=== PATIENT | female | born 2000 | race Caucasian/White ===

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

== ENCOUNTER 2021-01-13 21:41 | Emergency (ER) | payer SELFPAY ==
[2021-01-13 21:48] VITALS: BP 115/76; PULSE 96; RESP 18; O2SAT 99; BMI 24.4
--- NOTE | 2021-01-13 21:56 | ED_ITS ---
HPI - Abdominal Pain General: Chief Complaint: Abdominal Pain Stated Complaint: ab pain Time Seen by Provider: 01/13/21 21:44 Source: patient Mode of arrival: ambulatory Limitations: no limitations History of Present Illness: HPI narrative: Patient is a 20-year-old female who presents to ED today with a complaint of epigastric pain that began yesterday. Patient was initially seen at urgent care earlier today and told to begin taking OTC omeprazole. Patient tells me she took 1 tablet of this but this is not helping her symptoms. She is complaining of nausea without vomiting. Last bowel movement was yesterday and described as normal. She has not been running fevers. She does not complain of urinary symptoms. She is status post cholecystectomy. She states her pain is worse with eating. MD elicited complaint: abdominal pain Onset (ago): day(s) (yesterday) Pain Consistency: constant Location: Epigastric Severity: moderate Quality: sharp Radiation: none Migration to: no migration Exacerbating factors: eating Relieving factors: nothing Associated Symptoms: Reports no associated symptoms and nausea; Denies change in stool character, dysuria, fever(s), hematemesis and vomiting Related Data: Date of Last Menstrual Period: 10/18/20 Patient : No Review of Systems Const: Denies: fever(s) ENMT: Denies: throat pain or odynophagia Card: Denies: chest pain Resp: Denies: dyspnea GI: Reports: abdominal pain and nausea; Denies: vomiting, hematemesis, pain on defecation or change in stool character : Denies: flank pain or dysuria Musc: Denies: back pain Skin/Breast: Denies: rash Neuro: Denies: headache(s) PFSH ED PFSH: Social History Smoking and tobacco status: never smoked Alcohol intake: never Female Reproductive History: Date of last menstrual period: 10/18/20 Physical Exam Const: COMMON NORMALS: no acute distress, average body habitus, patient oriented x3, no limitations, healthy appearing, alert and well nourished GENERAL APPEARANCE: cooperative ORIENTATION/CONSCIOUSNESS: Yes awake, Yes oriented to person, Yes oriented to place and Yes oriented to time Chest: COMMONS NORMALS: normal inspection of the chest and normal palpation of entire chest wall Resp: COMMON NORMALS: normal respiratory effort and clear to auscultation bilaterally AUSCULTATION: clear to auscultation bilaterally Cardio: COMMON NORMALS: regular rate and regular rhythm RATE: regular rate RHYTHM: regular rhythm GI: COMMON NORMALS: Normal to inspection, nondistended, normoactive bowel sounds present, Soft to palpation, No hepatosplenomegaly present and no masses PALPATION: Yes Soft to palpation, Yes Tenderness to palpation present (GI) (epigastric) and Yes No hepatosplenomegaly present : COMMON NORMALS: Yes no CVA tenderness BLADDER/KIDNEY EXAM: Yes no CVA tenderness Back/Pelvis: COMMON NORMALS: no CVA tenderness Extremity: COMMON NORMALS: normal to inspection Neuro: COMMON NORMALS: patient oriented x3 SENSORIUM/ORIENTATION: Yes alert, Yes oriented to person, Yes oriented to place and Yes oriented to time Skin: COMMON NORMALS: no rashes or lesions noted GENERAL SKIN EXAM: no rashes or lesions noted Course Vital Signs: Vital signs: Vital Signs Pulse Rate 96 01/13/21 21:48 Respiratory Rate 18 01/13/21 21:48 Blood Pressure 115/76 01/13/21 21:48 Pulse Oximetry 99 01/13/21 21:48 MDM - Abdominal Pain MDM Narrative: Medical decision making narrative: Patient states her pain is much improved after GI cocktail. Recommend she start taking an H2 carlos in addition the omeprazole. Will give her some vicious lidocaine she can take as well if needed. [place] diet discussed and advance as tolerated. Lab Data: Labs: Lab Results 01/13/21 01/13/21 01/13/21 Range/Units 22:06 22:06 22:06 WBC 6.4 (4.5-13.0) 10^3/ uL RBC 4.26 (4.1-5.3) 10^6/u L Hgb 12.9 (11.5-15.3) g/dL Hct 39.2 (37.0-47.0) % MCV 92.0 (81-99) fL MCH 30.3 (28.0-34.0) pg MCHC 32.9 (30.0-36.0) g/dL RDW 12.0 L (12.1-15.1) % Plt Count 246 (130-400) 10^3/c mm MPV 9.3 (7.4-10.4) fL Neut % (Auto) 47.3 % Lymph % (Auto) 40.7 % Roberts % (Auto) 7.9 % Eos % (Auto) 3.3 % Baso % (Auto) 0.6 % Neut # (Auto) 3.04 (1.8-8.0) 10^3/u L Lymph # (Auto) 2.6 (1.5-6.5) 10^3/u L Roberts # (Auto) 0.5 (0.2-0.9) 10^3/u L Eos # (Auto) 0.2 (0.0-0.8) 10^3/u L Baso # (Auto) 0.0 (0.0-0.1) 10^3/u L Nucleated RBC % (a uto) 0 % Nucleated RBCs # 0.0 /100WBC Sodium 137 (136-145) mmol/L Potassium 3.7 (3.5-5.1) mmol/L Chloride 103 (98-107) mmol/L Carbon Dioxide 24 (22-29) mmol/L Anion Gap 13.7 (5-19) BUN 6 (6-20) mg/dL Creatinine 0.7 (0.5-0.9) mg/dL GFR Calculation 107.8 (90-130) mL/min Glucose 100 (65-115) mg/dL Calculated Osmolal ity 282 L (285-295) mOsm/k g Calcium 8.2 L (8.5-10.5) mg/dL Total Bilirubin 0.4 (0.15-1.2) mg/dL AST 19 (0-32) U/L ALT 20 (0-33) U/L Alkaline Phosphata se 68 (35-105) IU/L Total Protein 6.7 (6.6-8.7) g/dL Albumin 4.2 (3.5-5.2) g/dL Globulin 2.5 (1.3-4.6) g/dL Lipase 21 (13-60) U/L HCG, Qual Negative (Negative) Discharge Plan Discharge Patient Disposition: Home Clinical Impression: Gastritis Qualifiers: Gastritis type: unspecified gastritis Chronicity: acute Gastritis bleeding: without bleeding Qualified Code(s): K29.00 - Acute gastritis without bleeding Condition: Stable Prescriptions: New Lidocaine Viscous 2 % solution 15 ml PO QID PRN (Reason: pain) Qty: 100 RF: 0 No Action citalopram 20 mg tablet 20 mg PO ONCE RF: 0 cyproheptadine 4 mg tablet 4 mg PO ONCE RF: 0 trazodone 100 mg tablet 100 mg PO DAILY RF: 0 Discharge Orders: Discharge ED (Routine); Ordered 01/13/21 Ordered By: Payal Alfaro Referrals: Renan Bridges MD [Primary Care Provider] - Activity Restrictions/Additional Instructions: Start your Omeprazole as instructed. Begin taking a medication such as Pepcid/Zantac according to label instructions. You may use the prescription viscous lidocaine as directed-may mix this with Pepto or Maalax. Return to the ED for worsening pain, vomiting blood, or any other concerns you may have. Coding Level of Care Code ED Rag Sorter for Guilherme Paniagua
[2021-01-13] MEDS: lidocaine 2% viscous 15 ML, aluminum-mag hydrox-simethicon 30 ML, sucralfate oral liq 1 GM PO (21:59)
[2021-01-13 22:11] LABS: Basophils % 0.6 %; Eosinophils # 0.2 10^3/uL (0.0-0.8); Eosinophils % 3.3 %; Hematocrit 39.2 % (37.0-47.0); Hemoglobin 12.9 g/dL (11.5-15.3); Lymphocytes # 2.6 10^3/uL (1.5-6.5); Lymphocytes % 40.7 %; Mean Corpuscular HGB Conc 32.9 g/dL (30.0-36.0); Mean Corpuscular Hemoglobin 30.3 pg (28.0-34.0); Mean Platelet Volume 9.3 fL (7.4-10.4); Monocytes # 0.5 10^3/uL (0.2-0.9); Monocytes % 7.9 %; Neutrophils # 3.04 10^3/uL (1.8-8.0); Neutrophils % 47.3 %; Nucleated Red Blood Cells % 0 %; Platelet Count 246 10^3/cmm (130-400); Red Blood Count 4.26 10^6/uL (4.1-5.3); White Blood Count 6.4 10^3/uL (4.5-13.0)
[2021-01-13 22:27] LABS: HCG, Serum Qual Negative (Negative)
[2021-01-13 22:29] LABS: Alanine Aminotransferase 20 U/L (0-33); Albumin Level 4.2 g/dL (3.5-5.2); Alkaline Phosphatase 68 IU/L (35-105); Anion Gap 13.7 (5-19); Aspartate Amino Transferase 19 U/L (0-32); Blood Urea Nitrogen 6 mg/dL (6-20); Calcium 8.2 mg/dL (8.5-10.5); Carbon Dioxide 24 mmol/L (22-29); Chloride 103 mmol/L (98-107); Globulin 2.5 g/dL (1.3-4.6); Glomerular Filtration Rate 107.8 mL/min (90-130); Glucose 100 mg/dL (65-115); Lipase 21 U/L (13-60); Osmolality Calculated 282 mOsm/kg (285-295); Potassium 3.7 mmol/L (3.5-5.1); Sodium 137 mmol/L (136-145); Total Bilirubin 0.4 mg/dL (0.15-1.2); Total Protein 6.7 g/dL (6.6-8.7)
[2021-01-13 23:00] VITALS: BP 121/63; PULSE 73; RESP 17; O2SAT 100
== END 2021-01-13 23:00 | disposition home or self-care (01) ==
PROVIDERS: Emergency Provider Physician Assistant; PCP Family Medicine
DX: K29.00 Acute gastritis without bleeding (principal)
CPT/HCPCS: 80053; 83690; 84703; 85025; 99283

== ENCOUNTER 2021-12-20 13:23 | Outpatient (CLI) | payer MEDICAID, SELFPAY ==
--- NOTE | 2021-12-20 13:52 | XR_ITS ---
WS: [id number] Exam: XR knee RT 3V* [id number] Date/Time of Exam: 12/20/2021 2:11 PM Reason For Exam: R KNEE PAIN No fracture or dislocation noted. Articular relationships are intact. No joint effusion. XR/XR knee RT 3V* [id number] Impression: Normal right knee Kellgren-Denzel Classification: 0
== END 2021-12-20 13:24 | disposition home or self-care (01) ==
LOC: RAD 13:24
PROVIDERS: PCP Family Medicine; Visit Provider Family Medicine
DX: M25.561 Pain in right knee (principal)
CPT/HCPCS: 73562